=== PATIENT | female | born 1965 | race Caucasian/White ===

== ENCOUNTER 2022-01-03 21:24 | Emergency (ER) | payer OTHER ==
[2022-01-03] VITALS (7 sets, daily range): BP systolic 133–177; BP diastolic 61–100
[~2022-01-03] VITALS: Ht 157.5 cm; Wt 68.0 kg
[2022-01-03 22:47] LABS: HEMATOCRIT 43.1 % (37.0-47.0); HEMOGLOBIN 14.2 g/dl (12.0-16.0); IMMATURE GRANULOCYTES 0.1 % (0.0-5.0); MEAN CELL VOLUME 90.5 fL CALC (80.0-100.0); MEAN CORPUSCULAR HGB 29.8 pG CALC (26.0-32.0); MEAN CORPUSCULAR HGB CONC 32.9 g/dL CAL (32.0-36.0); NEUT# 3.52 thou/uL (2.00-7.15); RED BLOOD COUNT 4.76 mill/uL (4.20-5.60); RED CELL DISTRI WIDTH 11.7 % (11.5-15.5)
[2022-01-03 22:47] LABS: URINE BILIRUBIN - DIPSTICK NEGATIVE (NEGATIVE); URINE BLOOD DIPSTICK NEGATIVE (NEGATIVE); URINE COLOR YELLOW; URINE GLUCOSE - DIPSTICK NEGATIVE (NEGATIVE); URINE KETONE NEGATIVE (NEGATIVE); URINE LEUK ESTERASE NEGATIVE (NEGATIVE); URINE PROTEIN - DIPSTICK NEGATIVE (NEG-TRACE); URINE SPECIFIC GRAVITY 1.025; URINE UROBILINOGEN - DIPSTICK 0.2 E.U./dL (0.2)
[2022-01-03 22:51] LABS: URINE NITRITE - DIPSTICK NEGATIVE (Negative)
[2022-01-03 23:34] LABS: ALBUMIN 4.6 g/dL (3.2-5.0); ALKALINE PHOSPHATASE 101 u/l (38-126); ANION GAP 10 (6-22 (CALC)); BUN 12 mg/dL (7-17); BUN/CREATININE RATIO 19 (12-20 (CALC)); CARBON DIOXIDE 26 mmol/l (22-30); CHLORIDE 106 mmol/l (95-108); CREATININE 0.6 mg/dL (0.5-1.0); GFR FOR AFR.AMER. > 60 ML/MIN (>=60 (CALC)); GFR OTHER RACES > 60 ML/MIN (>=60 (CALC)); LIPASE 209 u/l (23-300); POTASSIUM 4.5 mmol/l (3.5-5.1); SGOT/AST 37 u/l (14-36); SODIUM 138 mmol/l (137-146); TOTAL PROTEIN 7.8 g/dL (6.3-8.2)
[2022-01-04] MEDS ORDERED: BP MED (00:10)
[2022-01-04 00:25] VITALS: BP 154/73
[2022-01-04] MEDS ORDERED: NORVASC5 M1 PO (00:26)
[2022-01-04 00:30] VITALS: BP 154/71
[2022-01-04] MEDS ORDERED: TORADOL PO (00:31)
[2022-01-04 00:39] VITALS: BP 154/71
== END 2022-01-04 00:44 | disposition home or self-care (01) | DRG 392 ==
LOC: ED 21:24
PROVIDERS: Family Medicine
DX: R10.32 Left lower quadrant pain (principal); I10 Essential (primary) hypertension
CPT/HCPCS: Q9967

== ENCOUNTER 2022-05-23 19:51 | Emergency (ER) | payer OTHER ==
[~2022-05-23] VITALS: Ht 157.5 cm; Wt 61.0 kg
[~2022-05-23 19:51] MED LIST: BP MED; NORVASC5 M1 PO; TORADOL PO
[2022-05-23 20:16] VITALS: BP 147/73
[2022-05-23 20:30] VITALS: BP 150/76
[2022-05-23 20:45] VITALS: BP 166/73
[2022-05-23 20:53] LABS: HEMATOCRIT 38.5 % (37.0-47.0); HEMOGLOBIN 13.1 g/dl (12.0-16.0); IMMATURE GRANULOCYTES 0.2 % (0.0-5.0); MEAN CELL VOLUME 87.1 fL CALC (80.0-100.0); MEAN CORPUSCULAR HGB 29.6 pG CALC (26.0-32.0); NEUT# 2.59 thou/uL (2.00-7.15); RED BLOOD COUNT 4.42 mill/uL (4.20-5.60); RED CELL DISTRI WIDTH 11.7 % (11.5-15.5)
[2022-05-23 21:00] VITALS: BP 128/103
[2022-05-23 21:04] LABS: ALBUMIN 4.5 g/dL (3.2-5.0); ALKALINE PHOSPHATASE 95 u/l (38-126); ANION GAP 14 (6-22 (CALC)); BILIRUBIN, TOTAL 0.6 mg/dL (0.0-1.4); BUN 10 mg/dL (7-17); BUN/CREATININE RATIO 16 (12-20 (CALC)); CARBON DIOXIDE 25 mmol/l (22-30); CHLORIDE 105 mmol/l (95-108); CREATININE 0.7 mg/dL (0.5-1.0); GFR FOR AFR.AMER. > 60 ML/MIN (>=60 (CALC)); GFR OTHER RACES > 60 ML/MIN (>=60 (CALC)); LIPASE 231 u/l (23-300); POTASSIUM 3.7 mmol/l (3.5-5.1); SGOT/AST 21 u/l (14-36); SODIUM 141 mmol/l (137-146)
[2022-05-23 21:42] LABS: URINE BILIRUBIN - DIPSTICK NEGATIVE (NEGATIVE); URINE BLOOD DIPSTICK LARGE (NEGATIVE); URINE COLOR YELLOW; URINE GLUCOSE - DIPSTICK NEGATIVE (NEGATIVE); URINE KETONE TRACE mg/dL (NEGATIVE); URINE LEUK ESTERASE NEGATIVE (NEGATIVE); URINE PROTEIN - DIPSTICK NEGATIVE (NEG-TRACE); URINE UROBILINOGEN - DIPSTICK 0.2 E.U./dL (0.2)
[2022-05-23 21:43] LABS: URINE NITRITE - DIPSTICK NEGATIVE (Negative)
[2022-05-23 21:53] LABS: URINE RBC 25-50 RBC/hpf (0-5); URINE WBC 0-2 WBC/hpf (0-5)
[2022-05-23] MEDS ORDERED: TAMSULOSIN0.4 MG PO (22:35)
[2022-05-23] MEDS ORDERED: TORADOL PO (22:35)
[2022-05-23] MEDS ORDERED: LORTAB5 PO (22:35)
[2022-05-23 22:54] VITALS: BP 128/103
== END 2022-05-23 23:17 | disposition home or self-care (01) | DRG 694 ==
LOC: ED 19:51
PROVIDERS: Family Medicine
DX: N20.2 Calculus of kidney with calculus of ureter (principal); N21.0 Calculus in bladder

== ENCOUNTER 2023-08-10 15:28 | Emergency (ER) | payer OTHER ==
[2023-08-10] VITALS (8 sets, daily range): BP systolic 130–172; BP diastolic 57–81
[~2023-08-10] VITALS: Ht 157.5 cm; Wt 68.0 kg
[~2023-08-10 15:28] MED LIST changes: +LORTAB5 PO; +TAMSULOSIN0.4 MG PO
[2023-08-10] MEDS ORDERED: ACETAMINOPHEN 500 MG TAB PO ONE (18:10)
[2023-08-10] MEDS ORDERED: VOLTAREN - GENE75 MG PO (18:53)
== END 2023-08-10 19:07 | disposition home or self-care (01) | DRG 563 ==
LOC: ED 15:28
DX: S86.911A Strain of unspecified muscle(s) and tendon(s) at lower leg level, right leg, initial encounter (principal); M71.21 Synovial cyst of popliteal space [Baker], right knee; I10 Essential (primary) hypertension; X50.0XXA Overexertion from strenuous movement or load, initial encounter